=== PATIENT | male | born 1995 | race Caucasian/White ===

== ENCOUNTER 2022-02-10 01:18 | Emergency (ER) | payer OTHER ==
[~2022-02-10 01:18] MED LIST: LODINE CAP 300300 MG PO; NORCO 5-325 TA1 EACH PO; ZOFRAN ODT 4 MG4 MG SL
[2022-02-10] MEDS ORDERED: IBUPROFEN600 MG PO (02:18)
[2022-02-10] MEDS ORDERED: POLYTRIM OP SOL10 ML OP (02:18)
== END 2022-02-10 02:22 | disposition home or self-care (01) ==
LOC: ER1 01:18
DX: T15.02XA Foreign body in cornea, left eye, initial encounter (principal); F17.290 Nicotine dependence, other tobacco product, uncomplicated
CPT/HCPCS: 65220; 99283